=== PATIENT | male | born 1980 | race African-American/Black ===

== ENCOUNTER 2025-08-06 05:40 | Emergency (ER) | payer BC, SELFPAY ==
[2025-08-06 05:48] VITALS: BP 144/83; PULSE 104; RESP 18; TEMP 37.1; O2SAT 99
[2025-08-06] MEDS: DOXYCYCLINE HYCLATE 100 MG TABLET PO (07:44)
--- NOTE | 2025-08-06 07:44 | ED_ITS ---
HPI - Skin/Abscess/Foreign Bdy General Chief complaint: Animal Bite Stated complaint: spider bite Time Seen by Provider: 08/06/25 07:37 History of Present Illness HPI narrative: Patient presents here after suspected spider bite, he noticed it about a week ago and since then has gotten more swollen, harder, more painful. No fevers or chills Related Data Allergies Allergy/AdvReac Type Severity Reaction Status Date / Time No Known Allergies Allergy Verified 08/06/25 05:41 Review of Systems Review of Systems: All systems reviewed & are unremarkable except as noted in HPI and below Exam Narrative: EXAMINATION OF ORGAN SYSTEMS/BODY AREAS: Constitutional: Vital signs per nursing GENERAL:[No acute distress, non-toxic appearing.] HEAD: Normal with no signs of head trauma. EYES: EOMI, conjunctiva normal ENT: Hearing grossly intact LUNGS: Nonlabored breathing. HEART: [Regular rate and rhythm] ABD: [Soft], [nontender to palpation] EXT: Normal range of motion SKIN: 3cm area of redness, induration, tenderness to abdominal, tiny area of pointing without any fluctuance NEURO: [Alert and oriented x 3. No gross focal sensory or strength deficits.] Ambulating with normal steady gait PSYCH: Normal affect Course Vital Signs Vital signs: Vital Signs Temperature 98.8 F 08/06/25 05:48 Pulse Rate 104 H 08/06/25 05:48 Respiratory Rate 18 08/06/25 05:48 Blood Pressure 144/83 H 08/06/25 05:48 Pulse Oximetry 99 08/06/25 05:48 Oxygen Delivery Room Air 08/06/25 05:48 Temperature 98.8 F 08/06/25 05:48 Pulse Rate 104 H 08/06/25 05:48 Respiratory Rate 18 08/06/25 05:48 Blood Pressure 144/83 H 08/06/25 05:48 Pulse Oximetry 99 08/06/25 05:48 Oxygen Delivery Room Air 08/06/25 05:48 MDM MDM Narrative Medical decision making narrative: Patient presented to the ED with complaint of painful skin rash. Vitals [were within acceptable limits]. Physical exam revealed area of tenderness and induration consistent with possible abscess versus localized reaction to spider bite, without any fluctuance that may benefit from drainage. [Patient was given doxycycline here and a course to continue at home.] The patient is discharged home in stable condition. I have asked the patient to return to the emergency department for worsening pain, worsening and increasing size of skin infection, fevers/chills. The patient is instructed to follow up with [PCP] in [2] days. Patient verbalized understanding. Differential Diagnosis Differential Diagnosis: Infected spider bite, local reaction to a spider bite, developing necrosis from brown recluse, abscess, cellulitis Discharge Plan Discharge Clinical Impression: Infection Patient Disposition: Home Condition: Stable Instructions: Antibiotic Form, Insect Bite or Sting (ED) Additional Instructions: Please follow up with your doctor; take the antibiotics as prescribed. If the swelling worsens, or you start having fevers or chills, or anything else concerning, or if your symptoms do not improve after antibiotics, please come back to the emergency room. Patient Language: Macedonian Prescriptions: New doxycycline hyclate 100 mg capsule 100 mg PO Q12H 7 Days Qty: 14 0RF Follow-up/Referrals: Troy Lechuga MD [Primary Care Provider, Family Practice] - 2 Days
== END 2025-08-06 07:45 | disposition home or self-care (01) ==
PROVIDERS: Emergency Provider Emergency Medicine; PCP Emergency Medicine
DX: L08.9 Local infection of the skin and subcutaneous tissue, unspecified (principal)
CPT/HCPCS: 99283; A9270